=== PATIENT | male | born 1990 | race Two or more races ===

== ENCOUNTER 2017-06-18 07:12 | Day surgery (SDC) | payer OTHER ==
--- NOTE | 2017-05-07 07:33 | Pre-Procedure Note/Attestation ---
Pre-Procedure Note/Attestation Complete Prior to Procedure Planned Procedure: right Procedure Narrative: knee arthroscopy, possible medial menisectomy Indications for Procedure Pre-Operative Diagnosis: right knee medial miniscus tear Attestation I attest that I discussed the nature of the procedure; its benefits; risks and complications; and alternatives (and the risks and benefits of such alternatives ), prior to the procedure, with the patient (or the patient's legal service representative). I attest that, if there was a reasonable possibility of needing a blood transfusion, the patient (or the patient's legal service representative) was given the [facility] standardized written summary, pursuant to the Yobany [place] Blood Safety Act ([place] Health and Safety Code # 1645, as amended). I attest that I re-evaluated the patient just prior to the surgery and that there has been no change in the patient's H&P, except as documented below: MALICK YING May 07, 2017 07:33
--- NOTE | 2017-05-07 07:33 | Operative Note - PDOC ---
Operative Note Operative Note Pre-op Diagnosis: right knee medial miniscus tear Procedure: right kneee arthroscopy, medial menisectomy Post-op Diagnosis: same as pre-op plus Operative Findings: consistent w/pre-op dx studies Anesthesia: MAC Specimen: none Complications: none Condition: stable Estimated Blood Loss: none Implant(s) used?: No MALICK YING May 07, 2017 07:33
[2017-06-18] VITALS (11 sets, daily range): BP systolic 98–127; BP diastolic 55–69
[~2017-06-18] VITALS: Ht 170.2 cm; Wt 81.6 kg
[~2017-06-18 07:12] MED LIST: NKM; ceFAZolin 1gm in D5W 55ml IVP ONE; celeBREX 200mg Cap **SURGERY PATIENTS ONLY ORAL ONE; oxyCONTIN 20mg tab ORAL ONE
[2017-06-18] MEDS ORDERED: D5 1/2NS 1,000 ML IV SCH (08:30)
[2017-06-18] MEDS ORDERED: Norco 5mg/325mg tab ORAL PRN (08:30)
[2017-06-18] MEDS ORDERED: HYDROmorphone 1mg/ml Carpuject SUBQ PRN (08:30)
[2017-06-18] MEDS ORDERED: Tylenol #3 tab (300mg/30mg) ORAL PRN (08:30)
--- NOTE | 2017-06-18 08:30 | Pre-Procedure Note/Attestation ---
Pre-Procedure Note/Attestation Complete Prior to Procedure Planned Procedure: right Procedure Narrative: knee dignostic arthroscopy, possible synovectomy, possible menisectomy Indications for Procedure Pre-Operative Diagnosis: right knee medial miniscus tear Attestation I attest that I discussed the nature of the procedure; its benefits; risks and complications; and alternatives (and the risks and benefits of such alternatives ), prior to the procedure, with the patient (or the patient's legal compliance representative). I attest that, if there was a reasonable possibility of needing a blood transfusion, the patient (or the patient's legal compliance representative) was given the [facility] standardized written summary, pursuant to the [place] Blood Safety Act ([place] Health and Safety Code # 1645, as amended). I attest that I re-evaluated the patient just prior to the surgery and that there has been no change in the patient's H&P, except as documented below: MALICK YING Jun 18, 2017 08:30
--- NOTE | 2017-06-18 08:30 | Operative Note - PDOC ---
Operative Note Operative Note Pre-op Diagnosis: right knee lateral miniscus tear Procedure: right kneee arthroscopy, lateral menisectomy Post-op Diagnosis: same as pre-op plus Operative Findings: consistent w/pre-op dx studies Anesthesia: MAC Specimen: none Complications: none Condition: stable Estimated Blood Loss: none Implant(s) used?: No MALICK YING Jun 18, 2017 08:30
[2017-06-18] MEDS ORDERED: Ketorolac 30mg Inj ONE ×2 (08:32→09:00)
[2017-06-18] MEDS ORDERED: EPINEPHrine 1mg/1ml Amp ONE (08:32)
[2017-06-18] MEDS ORDERED: Kenalog-40 1ml Vial ONE (08:32)
[2017-06-18] MEDS ORDERED: Morphine Sulfate PF 10 ML ONE (08:32)
[2017-06-18] MEDS ORDERED: Bupivacaine 0.25% Inj 30ml INJ ONE (08:33)
[2017-06-18] MEDS ORDERED: Lidocaine 1% 10mg/ml/EPI 0.01mg/ml 50ml INJ ONE (08:33)
[2017-06-18] MEDS ORDERED: LR 1000ml ONE (09:00)
[2017-06-18] MEDS ORDERED: fentaNYL 100 mcg/2 mL IV PRN (09:00)
[2017-06-18] MEDS ORDERED: NS Irrig 2000ml IRRIG ONE (09:00)
[2017-06-18] MEDS ORDERED: fentaNYL 100 mcg/2 mL IV ONE (09:00)
[2017-06-18] MEDS ORDERED: Propofol 200mg/20ml IV ONE (09:00)
[2017-06-18] MEDS ORDERED: Metoclopramide 10mg/2ml Inj ONE (09:00)
[2017-06-18] MEDS ORDERED: Lidocaine 1% MPF 10mg/ml 5ml ONE (09:00)
[2017-06-18] MEDS ORDERED: Midazolam 2mg/2ml Inj ONE (09:00)
[2017-06-18] MEDS ORDERED: Hydromorphone 0.5mg/0.5ml inj IVP PRN (09:00)
--- NOTE | 2017-06-18 09:00 | Anethesia Preoperative Eval ---
Anesthesia Pre-op PMH/ROS General Date of Evaluation: Jun 18, 2017 Time of Evaluation: 08:58 Anesthesiologist: prakash ASA Score: ASA 2 Mallampati Score Class I : Soft palate, uvula, fauces, pillars visible Class II: Soft palate, uvula, fauces visible Class III: Soft palate, base of uvula visible Class IV: Only hard plate visible Mallampati Classification: Class II Surgeon: pisano Surgical Procedure: knee diagnostic Anesthesia History: none Social History: smoking, current smoker Family History: no anesthesia problems Allergies: Coded Allergies: Stephens (Verified Allergy, Mild, lips swell, itching, 06/17/17) Medications: see eMAR Past Medical History Cardiovascular: Denies: HTN, CAD, [place], valve dz, arrhythmia, other Pulmonary: Reports: other - smoker Gastrointestinal/Genitourinary: Denies: GERD, CRI, ESRD, other Neurologic/Psychiatric: Denies: dementia, CVA, depression/anxiety, TIA, other Endocrine: Denies: DM, hypothyroidism, steroids, other HEENT: Denies: cataract (L), cataract (R), glaucoma, AMBLER (L), AMBLER (R), other Hematology/Immune: Denies: anemia, DVT, bleeding disorder, other Musculoskeletal/Integumentary: Denies: OA, RA, DJD, DDD, edema, other Anesthesia Pre-op Phys. Exam Physician Exam Last Vital Signs Date Time Temp Pulse Resp B/P (MAP) Pulse Ox O2 Delivery O2 Flow Rate FiO2 06/18/17 07:44 97.0 71 18 118/69 100 Room Air Constitutional: NAD Neurologic: CN 2-12 intact Cardiovascular: RRR Respiratory: CTA Gastrointestinal: S/NT/ND Airway Exam Mallampati Classification 2 Mallampati Score: Class II MO: full Neck: normal TMD: 2fb Teeth: other - chipped both upper incisors Anesthesia Pre-op A/P Studies Pre-op Studies: EKG - sr Risk Assessment & Plan Plan: general LMA YEISON APONTE CRNA Jun 18, 2017 09:00
[2017-06-18] MEDS ORDERED: Duramorph PF 10mg/10ml amp IV ONE (09:35)
--- NOTE | 2017-06-18 10:21 | Immediate Post-Op Evaluation ---
Immediate Post-Op Evalulation Immediate Post-Op Evalulation Procedure: right knee diag scope Date of Evaluation: Jun 18, 2017 Time of Evaluation: 09:50 IV Fluids: 800 Blood Pressure Systolic: 116 Blood Pressure Diastolic: 69 Pulse Rate: 88 Respiratory Rate: 14 O2 Sat by Pulse Oximetry: 100 Temperature (Fahrenheit): 97.7 Pain Score (1-10): 0 Nausea: No Vomiting: No Complications none Patient Status: awake, reacts, patent Hydration Status: adequate Drug: ancef Given Within 1 Hr of Incision: Yes Time Given: 09:10 YEISON APONTE CRNA Jun 18, 2017 10:21
--- NOTE | 2017-06-18 11:11 | 48 Hour Post Anesthesia Eval ---
Post Anesthesia Evaluation Procedure: right knee diag scope Date of Evaluation: Jun 18, 2017 Time of Evaluation: 11:10 Blood Pressure Systolic: 127 0: 67 Pulse Rate: 65 Respiratory Rate: 14 O2 Sat by Pulse Oximetry: 99 Airway: patent Nausea: No Vomiting: No Hydration Status: adequate Cardiopulmonary Status: stable Mental Status/LOC: patient returned to baseline Follow-up Care/Observations: na Post-Anesthesia Complications: none Follow-up care needed: N/A YEISON APONTE CRNA Jun 18, 2017 11:11
--- NOTE | 2017-06-18 15:15 | Operative Note - Dictated ---
DATE OF OPERATION: 06/18/2017 PREOPERATIVE DIAGNOSES: 1. Right knee lateral meniscus tear. 2. Right knee chondral damage. POSTOPERATIVE DIAGNOSES: 1. Right knee tear through the body of the lateral meniscus. 2. Grade 3 chondral damage, lateral tibial plateau. 3. Hypertrophic synovial tissue, medial and lateral patellofemoral compartments. PROCEDURES: 1. Right knee arthroscopy and partial lateral meniscectomy. 2. Synovectomy, medial lateral compartment. 3. Gentle chondroplasty, lateral tibial plateau. SURGEON: Jian Shell M.D. ANESTHESIA: MAC. INDICATION FOR PROCEDURE: The patient is a pleasant gentleman who has had injury to his right knee. He had continued symptoms. He had an MRI, which showed a possible meniscal tear. Given that he had continued issues, he elected to undergo right knee arthroscopy and lateral meniscectomy. Risks, limitations, expectations, and complications related to the procedure were discussed in detail including continued pain, need for future surgery, etc. All questions were addressed. DESCRIPTION OF PROCEDURE: After informed consent was obtained, the patient was brought to the operating room and placed the patient under monitored anesthesia control. Tourniquet was applied on the right proximal thigh. Right leg was prepped and draped in a sterile manner. Ancef was administered. A 20 mL of 0.25% Marcaine was injected in the right knee. Portal sites were injected with 1% lidocaine with epinephrine. An inferolateral stab incision was then made. Trocar was introduced in the knee joint. There was significant resistance in the lateral compartment gutter area. There was hypertrophic synovial tissue in the patellofemoral compartment. Visualization in the patellofemoral compartment was somewhat difficult. Medial gutter was free of any loose bodies. Medial compartment was entered. There was hypertrophic synovial tissue. Medial working portal was established. Synovectomy of the medial component was performed. The medial compartment was probed, free of meniscal chondral damage. Synovectomy was carried into the intercondylar notch. The ACL was probed and noted to be intact. Lateral compartment was entered. There was a radial tear of the middle body of the meniscus. A partial lateral meniscectomy was performed. Once that was completed, gentle chondroplasty of the tibial plateau was performed. There was grade 3 chondral damage in the lateral tibial plateau area. The camera was repositioned in the patellofemoral compartment. Synovectomy was completed. A better visualized patellofemoral compartment was noted to be free of any chondral damage. Instruments were removed. Portal sites were closed using 3-0 Monocryl. Steri-Strips and sterile dressing were applied. The patient was awoke and taken to recovery with stable vital signs. ESTIMATED BLOOD LOSS: None. COMPLICATIONS: None. SPECIMENS: None. IMPLANTS: None. Jian Shell M.D. DR: YOEL JOB#: [id number] CC:
== END 2017-06-18 11:15 | disposition home or self-care (01) ==
LOC: SUR 07:12
DX: S83.281A Other tear of lateral meniscus, current injury, right knee, initial encounter (principal); M67.261 Synovial hypertrophy, not elsewhere classified, right lower leg; F17.200 Nicotine dependence, unspecified, uncomplicated; Z91.018 Allergy to other foods; X58.XXXA Exposure to other specified factors, initial encounter; Y93.9 Activity, unspecified; Y92.9 Unspecified place or not applicable
CPT/HCPCS: 29876; 29881; J0171; J0690; J1885; J2250; J2274; J2405; J2704; J2765; J3010; J3301; J3490; J7120; 94003; 94150